=== PATIENT | female | born 1990 | race Caucasian/White ===

== ENCOUNTER 2016-09-24 13:23 | Emergency (ER) | payer OTHER ==
[~2016-09-24] VITALS: Ht 160 cm; Wt 78.0 kg
[~2016-09-24 13:23] MED LIST: ALBUAER2 INH; B-CO1CAP17 PO; FLVHFA110 INH; IBUP-1277 PO; LORA-741 PO; LORA10TA5 PO; MELO7.5T5 PO; VITACAP26 PO; [UNRECOGNIZED DRUG - OTHER] OPB
[2016-09-24 13:24] VITALS: TEMP 36.6; Ht 160 cm; Wt 78.0 kg
[2016-09-24] MEDS ORDERED: CHOL1TAB2 PO (13:59)
[2016-09-24] MEDS ORDERED: PANT40TA2 PO (14:00)
[2016-09-24] MEDS ORDERED: NRN100 PO (14:00)
--- NOTE | 2016-09-24 14:42 | EMERGENCY ROOM VISIT NOTE ---
History Report prepared by Jed: Art Kwong Under the Supervision of: Dr. Raeann Bartholomew D.O. First contact with patient: 14:05 Chief Complaint: CHEST PAIN Stated Complaint: SHARP CHEST AND ARM PAIN,SOB Nursing Triage Summary: pt to the ED with c/o chest pain and SOB and arm pain that hurts more with movement History of Present Illness The patient is a 25 year old female who presents to the Emergency Room with complaints of persistent left-sided chest pain that started earlier today. The pain radiates to the left arm and is worse when she leans forward. The pain does not radiate to her neck or back. The patient was taking trash out at work and getting ready to take a break when the pain came on suddenly. The patient has not taken anything for pain. She was not doing any heavy lifting or strenuous activity. The patient also complains of some lightheadedness and "queasiness." She denies fevers, chills, shortness of breath, nausea, numbness or tingling. She has not noticed any arm swelling. She has some coughing at baseline secondary to smoking. The patient hasn't eaten since yesterday. She has a history of fibromyalgia for which she does not take anything. She also has history of GERD. Source of History: patient Onset: today Position: chest (left) Timing: other (persistent) Modifying Factors (Worsening): movement (leaning forward) Associated Symptoms: No fevers, No chills, No neck pain, No SOB, No nausea, No back pain, No numbness Review of Systems See HPI for pertinent positives & negatives. A total of 10 systems reviewed and were otherwise negative. Past Medical & Surgical Medical Problems: (1) Anxiety (2) Depression (3) Scoliosis Family History Anxiety Depression Social History Smoking Status: Current Every Day Smoker Alcohol Use: occasionally Drug Use: none Marital Status: single Housing Status: lives alone Occupation Status: employed Current/Historical Medications Scheduled Cholecalciferol (Vitamin D-3), 1,000 UNITS PO DAILY Gabapentin (Gabapentin), 100 MG PO DAILY Loratadine (Claritin), 10 MG PO DAILY Pantoprazole (Pantoprazole Sodium), 40 MG PO DAILY Vitamin B Cmplx/Vitc/Folic Ac (Nephrocaps), 1 CAP PO DAILY Scheduled PRN Ibuprofen (Advil), 800-1,000 MG PO Q6H PRN for Headache or Pain Lorazepam (Ativan), 0.5 MG PO Q6H PRN for ANXIETY Allergies Coded Allergies: Guinea Pig Epithelium (Verified Allergy, Mild, ITCHY, WATERY EYES, 10/23/14) POLLEN (Verified Allergy, Unknown, unknown, 03/07/12) Tetanus Toxoid (Verified Allergy, Unknown, RASH, 10/23/14) Physical Exam Vital Signs Date Time Temp Pulse Resp B/P (MAP) Pulse Ox O2 Delivery O2 Flow Rate FiO2 09/24/16 16:38 74 16 116/88 100 09/24/16 15:00 64 16 111/90 98 09/24/16 13:24 36.6 91 20 123/77 97 Room Air Physical Exam GENERAL: alert, well appearing, well nourished, no distress, non-toxic EYE EXAM: normal conjunctiva. OROPHARYNX: no exudate, no erythema, lips, buccal mucosa, and tongue normal and mucous membranes are moist NECK: supple, no nuchal rigidity, no adenopathy, non-tender LUNGS: Clear to auscultation. Normal chest wall mechanics CHEST: No reproducible tenderness. HEART: no murmurs, S1 normal and S2 normal ABDOMEN: abdomen soft, non-tender, normo-active bowel sounds, no masses, no rebound or guarding. BACK: Back is symmetrical on inspection and there is no deformity, no midline tenderness, no CVA tenderness. SKIN: no rashes and no bruising UPPER EXTREMITIES: upper extremities are grossly normal. Left arm was nontender. Full range of motion of left arm passively, decreased active range of motion due to pain. LOWER EXTREMITIES: No pitting edema. NEURO EXAM: Normal sensorium, cranial nerves II-XII grossly intact, normal speech, no gross weakness of arms, no gross weakness of legs. Gross sensation intact. Medical Decision & Procedures ER Provider Diagnostic Interpretation: Radiology results have been interpreted by the radiologist and reviewed by me. SINGLE VIEW CHEST CLINICAL HISTORY: Atypical chest pain. FINDINGS: An AP, portable, upright chest radiograph is compared to chest x-ray and chest CT dated 10/23/2014. The examination is degraded by portable technique and patient rotation. The cardiomediastinal silhouette is unremarkable. The lungs and pleural spaces are clear. No pneumothorax is seen. The bony thorax is grossly intact. IMPRESSION: No active disease in the chest. Electronically signed by: Jim Pereira M.D. 09/24/2016 3:30 PM Dictated Date/Time: 09/24/2016 3:30 PM Laboratory Results 09/24/16 14:05 Red Blood Count 4.65, Mean Corpuscular Volume 90.1, Mean Corpuscular Hemoglobin 30.8, Mean Corpuscular Hemoglobin Concent 34.1, Mean Platelet Volume 10.2, Neutrophils (%) (Auto) 67.2, Lymphocytes (%) (Auto) 23.9, Monocytes (%) (Auto) 6.5, Eosinophils (%) (Auto) 1.7, Basophils (%) (Auto) 0.4, Neutrophils # (Auto) 6.93, Lymphocytes # (Auto) 2.46, Monocytes # (Auto) 0.67, Eosinophils # (Auto) 0.18, Basophils # (Auto) 0.04 09/24/16 14:05 Test 09/24/16 14:05 White Blood Count 10.31 K/uL (4.8-10.8) Red Blood Count 4.65 M/uL (4.2-5.4) Hemoglobin 14.3 g/dL (12.0-16.0) Hematocrit 41.9 % (37-47) Mean Corpuscular Volume 90.1 fL (80-100) Mean Corpuscular Hemoglobin 30.8 pg (25-34) Mean Corpuscular Hemoglobin Concent 34.1 g/dl (32-36) Platelet Count 341 K/uL (130-400) Mean Platelet Volume 10.2 fL (7.4-10.4) Neutrophils (%) (Auto) 67.2 % Lymphocytes (%) (Auto) 23.9 % Monocytes (%) (Auto) 6.5 % Eosinophils (%) (Auto) 1.7 % Basophils (%) (Auto) 0.4 % Neutrophils # (Auto) 6.93 K/uL (1.4-6.5) Lymphocytes # (Auto) 2.46 K/uL (1.2-3.4) Monocytes # (Auto) 0.67 K/uL (0.11-0.59) Eosinophils # (Auto) 0.18 K/uL (0-0.5) Basophils # (Auto) 0.04 K/uL (0-0.2) RDW Standard Deviation 41.9 fL (36.4-46.3) RDW Coefficient of Variation 12.8 % (11.5-14.5) Immature Granulocyte % (Auto) 0.3 % Immature Granulocyte # (Auto) 0.03 K/uL (0.00-0.02) D-Dimer < 190 ug/L FEU (0-500) Anion Gap 6.0 mmol/L (3-11) Est Creatinine Clear Calc Drug Dose 145.4 ml/min Estimated GFR () 148.7 Estimated GFR (Non- 128.3 BUN/Creatinine Ratio 14.3 (10-20) Calcium Level 8.6 mg/dl (8.5-10.1) Total Bilirubin 0.4 mg/dl (0.2-1) Aspartate Amino Transf (AST/SGOT) 17 U/L (15-37) Alanine Aminotransferase (ALT/SGPT) 23 U/L (12-78) Alkaline Phosphatase 117 U/L (45-117) Troponin I < 0.015 ng/ml (0-0.045) Total Protein 8.1 gm/dl (6.4-8.2) Albumin 4.1 gm/dl (3.4-5.0) Globulin 4.0 gm/dl (2.5-4.0) Albumin/Globulin Ratio 1.0 (0.9-2) Human Chorionic Gonadotropin, Qual NEG (NEG) Laboratory results per my review. Medications Administered Medications (Trade) Dose Ordered Sig/Ariane Route Start Time Stop Time Status Last Admin Dose Admin Al Hydroxide/Mg Hydroxide (Maalox Susp) 15 ml NOW STAT PO 09/24/16 14:56 09/24/16 14:57 DC 09/24/16 15:13 15 ML Ketorolac Tromethamine (Toradol Inj) 30 mg NOW STAT IV 09/24/16 14:56 09/24/16 14:57 DC 09/24/16 15:12 30 MG ECG Indication: chest pain Rate (beats per minute): 69 Rhythm: normal sinus Findings: no acute ischemic change, no ectopy, other (normal axis, normal intervals) ED Course 1435: The patient was evaluated in room C9. A complete history and physical exam was performed. 1456: Toradol 30 mg IV, Maalox 15 ml PO. 1618: Reassessed the patient. Discussed the discharge instructions with her. She verbalized understanding. The patient is ready for discharge. Medical Decision Differential diagnoses includes but is not limited to acute coronary syndrome, myocardial infarction, pericarditis, pulmonary embolus, aortic dissection, pneumonia, pneumothorax, musculoskeletal, shingles, esophageal. Blood pressure screening: Patient was found to have normal blood pressure on screening and does not require follow-up. Medication Reconciliation: I attest that I have personally reviewed the patient' s current medication list. Pt with no risk factors for ACS or PE, no evidence of pneumothorax/effusion/ infiltrate. No recent trauma. Doubt perf, gi bleed, atypical for GERD. Doubt vascular etiology. No reproducible chest pain or arm pain. LUE able to be passively moved without pain. Pain only with active ROM testing by patient. VS otw stable. Discussed all sx with pt, discussed sx to watch/return for, she verbalized understanding and was agreeable with plan. Impression Primary Impression: Left sided chest pain Scribe Attestation The scribe's documentation has been prepared under my direction and personally reviewed by me in its entirety. I confirm that the note above accurately reflects all work, treatment, procedures, and medical decision making performed by me. Departure Information Dispostion Home / Self-Care Referrals Mirian Hdz D.O. (PCP) Forms HOME CARE DOCUMENTATION FORM, IMPORTANT VISIT INFORMATION, Work Instructions Patient Instructions My [facility] Additional Instructions Please call and follow-up with your family doctor. Please continue regular medications as prescribed. You may use Tylenol and ibuprofen as needed for pain. If you develop any increasing chest pain or arm pain, develop trouble breathing, nausea or vomiting, dizziness or lightheadedness, fevers, vomiting, numbness or tingling, swelling or discoloration of the arm, or you have any other new concerns, please return the emergency room.
[2016-09-24] MEDS ORDERED: ALUMINUM/MAGNESIUM SUSP 30 ML UDC PO STA (14:56)
[2016-09-24] MEDS ORDERED: KETOROLAC TROMETHAMINE 30 MG/ML VIAL IV STA (14:56)
[2016-09-24 15:10] LABS: BASO % 0.4 %; BASO ABS # 0.04 K/uL (0-0.2); COMPLETE YES; EOS % 1.7 %; HEMATOCRIT 41.9 % (37-47); IG% 0.3 %; LYMPH % 23.9 %; LYMPH ABS # 2.46 K/uL (1.2-3.4); MEAN CELL VOLUME 90.1 fL (80-100); MEAN CORPUSCULAR HEMOGLOBIN 30.8 pg (25-34); MEAN CORPUSCULAR HGB CONC 34.1 g/dl (32-36); MEAN PLATELET VOLUME 10.2 fL (7.4-10.4); MONO % 6.5 %; NEUT % 67.2 %; PLATELET COUNT 341 K/uL (130-400); RED BLOOD COUNT 4.65 M/uL (4.2-5.4); WHITE BLOOD COUNT 10.31 K/uL (4.8-10.8)
[2016-09-24 15:14] LABS: PREG INTERNAL NEGATIVE QC NEG CLEAR BACKGROUND; PREG INTERNAL POSITIVE QC POS CONTROL LINE
[2016-09-24 15:18] LABS: ALT/SGPT 23 U/L (12-78); AST/SGOT 17 U/L (15-37); BLOOD UREA NITROGEN 8 mg/dl (7-18); BUN/CREATININE RATIO 14.3 (10-20); CALCIUM 8.6 mg/dl (8.5-10.1); CARBON DIOXIDE 29 mmol/L (21-32); CHLORIDE 107 mmol/L (98-107); CREATININE 0.59 mg/dl (0.60-1.20); GLUCOSE 82 mg/dl (70-99); SODIUM 142 mmol/L (136-145)
[2016-09-24 15:23] LABS: ALKALINE PHOSPHATASE 117 U/L (45-117)
--- NOTE | 2016-09-24 15:32 | DIAGNOSTIC IMAGING REPORT ---
SINGLE VIEW CHEST CLINICAL HISTORY: Atypical chest pain. FINDINGS: An AP, portable, upright chest radiograph is compared to chest x-ray and chest CT dated 10/23/2014. The examination is degraded by portable technique and patient rotation. The cardiomediastinal silhouette is unremarkable. The lungs and pleural spaces are clear. No pneumothorax is seen. The bony thorax is grossly intact. IMPRESSION: No active disease in the chest. Electronically signed by: Jim Pereira M.D. 09/24/2016 3:30 PM Dictated Date/Time: 09/24/2016 3:30 PM
[2016-09-24 16:38] VITALS: BP 116/88; PULSE 74; O2SAT 100
== END 2016-09-24 16:46 | disposition home or self-care (01) ==
LOC: C.EDB 13:24 → C.EDC 16:46
DX: R07.9 Chest pain, unspecified (principal); R42 Dizziness and giddiness; M79.7 Fibromyalgia; K21.9 Gastro-esophageal reflux disease without esophagitis; F17.200 Nicotine dependence, unspecified, uncomplicated; F41.9 Anxiety disorder, unspecified; F32.9 Major depressive disorder, single episode, unspecified; M41.9 Scoliosis, unspecified; Z81.8 Family history of other mental and behavioral disorders

== ENCOUNTER 2017-05-31 02:42 | Emergency (ER) | payer OTHER ==
[~2017-05-31] VITALS: Ht 157.5 cm; Wt 76.0 kg
[~2017-05-31 02:42] MED LIST changes: -ALBUAER2 INH; +CHOL1TAB2 PO; -FLVHFA110 INH; -LORA10TA5 PO; +LORA10TA6 PO; -MELO7.5T5 PO; +NRN100 PO; +PANT40TA2 PO; -VITACAP26 PO; -[UNRECOGNIZED DRUG - OTHER] OPB
[2017-05-31 02:48] VITALS: TEMP 36.8; Ht 157.5 cm; Wt 76.0 kg
--- NOTE | 2017-05-31 02:59 | EMERGENCY ROOM VISIT NOTE ---
History Report prepared by Jed: Mirza Moore Under the Supervision of: Dr. Kamini Nice D.O. First contact with patient: 02:46 Chief Complaint: OTHER COMPLAINT Stated Complaint: Chest pain, headache, nausea History of Present Illness The patient is a 26 year old female who presents to the Emergency Room with complaints of an episode of anxiety beginning 5 hours ago. The patient states that she has been very stressed recently because of financial problems, work difficulties, and losing her father two months ago. She notes that she can normally deal with her anxiety, but has had difficulty dealing with it tonight. She reports that her current life situation, as well as a lack of sleep and increased amount of fatigue has caused her stress to rise. The patient states that following her episode, she arrived to the emergency department via EMS because she was unsure of what was going on and was afraid to be drive privately. She also complains of chills but denies any fever, cough, and leg cramping/swelling. She notes that she has a history of fibromyalgia, depression , and anxiety for which she takes Ativan when needed. Source of History: patient Onset: 5 hours ago Position: other (global) Quality: other (anxiety) Timing: other (an episode) Associated Symptoms: + chills, No fevers, No cough Note: She denies any leg swelling/cramping. Review of Systems See HPI for pertinent positives & negatives. A total of 10 systems reviewed and were otherwise negative. Past Medical & Surgical Medical Problems: (1) Anxiety (2) Depression (3) Fibromyalgia (4) Hx of cholecystectomy (5) Scoliosis Family History Anxiety Cancer Depression Diabetes mellitus Gallbladder disease Heart disease Social History Smoking Status: Current Every Day Smoker Alcohol Use: occasionally Drug Use: none Marital Status: single Housing Status: lives alone Occupation Status: employed Current/Historical Medications Scheduled Beclomethasone Dipropionate Hf (Qvar Redihaler), 1 PUFF INH BID Cholecalciferol (Vitamin D-3), 1,000 UNITS PO DAILY Loratadine (Claritin), 10 MG PO DAILY Pantoprazole (Pantoprazole Sodium), 40 MG PO DAILY Vitamin B Cmplx/Vitc/Folic Ac (Nephrocaps), 1 CAP PO DAILY Scheduled PRN Albuterol Hfa (Ventolin Hfa), 2 PUFFS INH Q6H PRN for SOB/Wheezing Ibuprofen (Advil), 800-1,000 MG PO Q6H PRN for Headache or Pain Lorazepam (Ativan), 0.5 MG PO Q6H PRN for ANXIETY Allergies Coded Allergies: Guinea Pig Epithelium (Verified Allergy, Mild, ITCHY, WATERY EYES, 10/23/14) Penicillins (Verified Allergy, Mild, RASH, 05/31/17) Tetanus Toxoid (Verified Allergy, Unknown, RASH, 10/23/14) Uncoded Allergies: SULFA MEDS (Allergy, Mild, RASH, 05/31/17) Physical Exam Vital Signs Date Time Temp Pulse Resp B/P (MAP) Pulse Ox O2 Delivery O2 Flow Rate FiO2 05/31/17 05:12 82 20 118/72 98 05/31/17 04:27 78 20 118/70 98 Room Air 05/31/17 02:48 36.8 78 20 133/88 97 Room Air Physical Exam HEENT: Head - normocephalic and atraumatic Pupils are equal, round, and reactive to light. Extraocular eye muscles are intact, and sclera are anicteric. Nose - moist nasal mucosa without discharge. Mouth - moist buccal mucosa. Oropharynx is nonerythematous and there is no tonsillar exudate or edema noted. Neck: Supple; no JVD, nuchal rigidity, cervical lymphadenopathy. Heart: Regular rate and rhythm. There is a normal S1 and S2 with no murmurs, clicks, or gallops appreciated. Lungs: Clear to auscultation bilaterally with no wheezes, rales, or rhonchi. Abdomen: Soft, completely nontender, nondistended, with good bowel sounds. There are no palpable pulsatile masses or hepatosplenomegaly. There is no guarding, rigidity, or rebound noted. Extremities: No evidence of cyanosis, clubbing, or edema. There are easily palpable peripheral pulses. Skin: warm and dry with good turgor and no rashes. Psych: Increased anxiety, denies suicidal ideations. Medical Decision & Procedures Medications Administered Medications (Trade) Dose Ordered Sig/Ariane Route Start Time Stop Time Status Last Admin Dose Admin Lorazepam (Ativan Tab) 1 mg NOW STAT SL 05/31/17 03:00 05/31/17 03:02 DC 05/31/17 03:05 1 MG Procedure 0300: Lorazepam 1mg SL ED Course 0253: Past medical records reviewed. The patient was evaluated in room A3. A complete history and physical exam was performed. The patient complained of nausea and appeared anxious on exam. 0300: Lorazepam 1mg SL 0350: I reevaluated the patient. She is asleep. 0417: Upon reevaluation, the patient is stable and feels much more relaxed. I discussed findings and results with her. She verbalized agreement of the treatment plan. The patient was discharged home. Medical Decision The patient is a 26 year old female who presents to the Emergency Room with complaints of an episode of anxiety beginning 5 hours ago. Differential diagnoses include: anxiety, depression, exacerbation of fibromyalgia, and viral illness. This 21-year-old female patient presents to the emergency department with worsening anxiety. The patient states that she does not well at home. She did not use her Ativan at home. She did call 911 and she had no other transportation to the emergency department. Once the patient received Ativan here in the emergency room, she was feeling much better. Her symptoms had resolved. Medication Reconcilliation Current Medication List: was personally reviewed by me Blood Pressure Screening Patient's blood pressure: Normal blood pressure Blood pressure disposition: Did not require urgent referral Impression Primary Impression: Anxiety Scribe Attestation The scribe's documentation has been prepared under my direction and personally reviewed by me in its entirety. I confirm that the note above accurately reflects all work, treatment, procedures, and medical decision making performed by me. Departure Information Dispostion Home / Self-Care Referrals Mirian Hdz D.O. (PCP) Forms HOME CARE DOCUMENTATION FORM, IMPORTANT VISIT INFORMATION, WORK / SCHOOL INSTRUCTIONS Patient Instructions My [facility] Additional Instructions Rest. Limit stress and anxiety Take ativan as directed when needed Return to the ER for worsening symptoms
[2017-05-31] MEDS ORDERED: LORAZEPAM 1 MG TAB SL STA (03:00)
[2017-05-31] MEDS ORDERED: VNTHFA/IN INH (03:21)
[2017-05-31] MEDS ORDERED: BECL40AE8 INH (03:28)
[2017-05-31 05:12] VITALS: BP 118/72; PULSE 82; O2SAT 98
== END 2017-05-31 05:13 | disposition home or self-care (01) ==
LOC: EDBD 02:42 → C.EDA 02:43
DX: F41.9 Anxiety disorder, unspecified (principal); F32.9 Major depressive disorder, single episode, unspecified; M79.7 Fibromyalgia; M41.9 Scoliosis, unspecified; Z80.9 Family history of malignant neoplasm, unspecified; Z83.3 Family history of diabetes mellitus; Z83.79 Family history of other diseases of the digestive system; Z82.49 Family history of ischemic heart disease and other diseases of the circulatory system; F17.210 Nicotine dependence, cigarettes, uncomplicated; Z79.899 Other long term (current) drug therapy; Z88.0 Allergy status to penicillin; Z88.7 Allergy status to serum and vaccine; Z88.2 Allergy status to sulfonamides; Z91.048 Other nonmedicinal substance allergy status